=== PATIENT | male | born 1970 | race African-American/Black ===

== ENCOUNTER 2020-11-30 23:08 | Emergency (ER) | payer OTHER ==
[~2020-11-30] VITALS: Ht 175.3 cm; Wt 62.7 kg
[2020-12-01 05:34] VITALS: BP 119/74
== END 2020-12-01 06:03 | disposition home or self-care (01) ==
LOC: EMS 23:11
DX: M16.12 Unilateral primary osteoarthritis, left hip (principal); F17.210 Nicotine dependence, cigarettes, uncomplicated; F12.90 Cannabis use, unspecified, uncomplicated
CPT/HCPCS: 73503; 99283